=== PATIENT | female | born 1995 | race Caucasian/White ===

== ENCOUNTER 2017-02-02 22:40 | Emergency (ER) | payer OTHER ==
[~2017-02-02] VITALS: Ht 162.6 cm; Wt 49.9 kg
[2017-02-02 22:53] VITALS: BP 146/91
--- NOTE | 2017-02-02 23:12 | PHYS DOC ---
Past Medical History Past Medical History: No Pertinent History Past Surgical History: Other Additional Past Surgical Histo: SPINAL FUSION Alcohol Use: None Drug Use: None Adult General Chief Complaint Chief Complaint: ABDOMINAL PAIN HPI HPI Patient is a 21 year old female presents emergency Department with her parents tonight with complaint of left upper abdominal pain when she was performing crunches this evening. Patient states that she noticed a prominence on the left upper abdominal wall when she was experiencing the pain. She states this is gradually been subsiding. She states this is happened to her in the past. Patient does have a history of scoliosis in which she had a fusion rods in her back. She has a very active [employer] in which she uses the "flyer" on the [employer] team. Review of Systems Review of Systems Constitutional: Denies fever or chills [] Eyes: Denies change in visual acuity, redness, or eye pain [] HENT: Denies nasal congestion or sore throat [] Respiratory: Denies cough or shortness of breath [] Cardiovascular: No additional information not addressed in HPI [] GI: Denies abdominal pain, nausea, vomiting, bloody stools or diarrhea [] : Denies dysuria or hematuria [] Musculoskeletal: Denies back pain or joint pain [] Integument: Denies rash or skin lesions [] Neurologic: Denies headache, focal weakness or sensory changes [] Endocrine: Denies polyuria or polydipsia [] Allergies Allergies Allergies Coded Allergies Type Severity Reaction Last Updated Verified No Known Drug Allergies 02/02/17 No Physical Exam Physical Exam Constitutional: Well developed, well nourished, no acute distress, non-toxic appearance. HENT: Normocephalic, atraumatic, bilateral external ears normal, oropharynx moist, no oral exudates, nose normal. [] Eyes: PERRLA, EOMI, conjunctiva normal, no discharge. [] Neck: Normal range of motion, no tenderness, supple, no stridor. [] Cardiovascular:Heart rate regular rhythm, no murmur [] Lungs & Thorax: Bilateral breath sounds clear to auscultation [] Abdomen: Patient has a scaphoid abdomen. There is no palpable defect of the abdominal wall or pulsatile mass appreciated. There is some tenderness along the left anterior costal rim in the upper rectus abdominis musculature. Again there is no defect in this area. She actually states that the pain has been resolving. Skin: Warm, dry, no erythema, no rash. [] Back: No tenderness, no CVA tenderness. [] Extremities: No tenderness, no cyanosis, no clubbing, ROM intact, no edema. [] Neurologic: Alert and oriented X 3, normal motor function, normal sensory function, no focal deficits noted. [] Psychologic: Affect normal, judgement normal, mood normal. [] Current Patient Data Vital Signs Vital Signs Date Time Temp Pulse Resp B/P Pulse Ox O2 Delivery O2 Flow Rate FiO2 02/02/17 22:53 98.2 105 16 146/91 98 Room Air 98.2 EKG EKG [] Radiology/Procedures Radiology/Procedures [] Course & Med Decision Making Course & Med Decision Making Pertinent Labs and Imaging studies reviewed. (See chart for details) [] Dragon Disclaimer Dragon Disclaimer This electronic medical record was generated, in whole or in part, using a voice recognition dictation system. Departure Departure Impression: Primary Impression: Abdominal wall strain Disposition: HOME, SELF-CARE Condition: GOOD Referrals: UNKNOWN PCP NAME (PCP) Patient Instructions: Muscle Strain, [id number] Additional Instructions: 1. There is no palpable defect to the abdominal wall suggestive of hernia. 2. Take ibuprofen every 8 hours and apply an ice pack to the area every 2 hours for 20-30 minutes at a time. 3. Stretch her abdominal wall muscles and avoid straining them for the next 48 hours. Light abdominal exercises after that period of time encouraged to be performed. 4. Follow-up with primary care doctor within the next week. If this is a recurring event, then referral to a physical therapist for functional evaluation may be requested. MEHREEN MARIE Feb 02, 2017 23:12
== END 2017-02-02 23:35 | disposition home or self-care (01) ==
LOC: ER 22:40
DX: S39.011A Strain of muscle, fascia and tendon of abdomen, initial encounter (principal); X58.XXXA Exposure to other specified factors, initial encounter; Y93.89 Activity, other specified; Y92.89 Other specified places as the place of occurrence of the external cause; Y99.8 Other external cause status
CPT/HCPCS: 99281